=== PATIENT | female | born 1950 | race Caucasian/White ===

== ENCOUNTER → 2016-05-12 | Outpatient (REF) | payer MEDICARE, OTHER | LOC: M LAB REF 13:21 | PROVIDERS: ATTEND Internal Medicine | DX: Z01.89 Encounter for other specified special examinations (principal) ==

== ENCOUNTER → 2019-04-30 | Outpatient (REF) | payer MEDICARE, OTHER ==
[2019-04-30 18:15] LABS: BLOOD UREA NITROGEN 19 MG/DL (7-18); CREATININE FOR GFR 0.84 MG/DL (0.55-1.30); GLOMERULAR FILTRATION RATE > 60.0 (>39)
== END ==
LOC: M LABNEURO 17:00
PROVIDERS: ATTEND Surgery Vascular Surgery
DX: I65.21 Occlusion and stenosis of right carotid artery (principal)

== ENCOUNTER 2019-07-20 13:41 | Emergency (ER) | payer MEDICARE, OTHER ==
[~2019-07-20] VITALS: Ht 160 cm; Wt 80.7 kg
[2019-07-20] MEDS ORDERED: CLOP75TA2 (14:06)
[2019-07-20] MEDS ORDERED: CLON-412 (14:06)
[2019-07-20] MEDS ORDERED: ROSU20TA5 (14:06)
[2019-07-20] MEDS ORDERED: LISI40TA (14:06)
[2019-07-20] MEDS ORDERED: ASPI81CH33 PO (14:07)
[2019-07-20] MEDS ORDERED: CALC600C3 PO (14:08)
[2019-07-20] MEDS ORDERED: VITAD1000T PO (14:09)
[2019-07-20] MEDS ORDERED: OMEG12004 PO (14:10)
[2019-07-20] MEDS ORDERED: VITA500C24 PO (14:10)
[2019-07-20 14:14] VITALS: BP 198/68
[2019-07-20] MEDS ORDERED: NIFEdipine 10 MG CAP PO ONE (14:15)
[2019-07-20 14:25] LABS: BASO % 0.6 % (0.0-1.0); EOS % 0.6 % (0.0-3.0); HEMATOCRIT 40.1 % (36.0-47.0); LYMPH # 1.8 10^3/uL (1.5-5.0); MEAN CORPUSCULAR HEMOGLOBIN 30.7 pg (27.0-33.0); MEAN CORPUSCULAR HGB CONC 32.4 g/dl (32.0-36.5); MEAN CORPUSCULAR VOLUME 94.8 fl (80.0-96.0); MONO # 0.5 10^3/uL (0.0-0.8); MONO % 6.9 % (0.0-5.0); NEUTROPHILS # 4.6 10^3/uL (1.5-8.5); NEUTROPHILS % 65.3 % (36.0-66.0); PLATELET COUNT, AUTOMATED 215 10^3/uL (150-450); RED BLOOD COUNT 4.23 10^6/uL (4.00-5.40); WHITE BLOOD COUNT 7.1 10^3/uL (4.0-10.0)
[2019-07-20 15:00] VITALS: BP 166/75
[2019-07-20 15:00] LABS: ALBUMIN 3.6 GM/DL (3.2-5.2); ALT/SGPT 15 U/L (12-78); BILIRUBIN,DIRECT 0.1 MG/DL (0.0-0.2); BILIRUBIN,TOTAL 0.3 MG/DL (0.2-1.0); BLOOD UREA NITROGEN 15 MG/DL (7-18); CALCIUM LEVEL 9.1 MG/DL (8.8-10.2); CARBON DIOXIDE LEVEL 27 MEQ/L (21-32); CHLORIDE LEVEL 107 MEQ/L (98-107); CK-MB VALUE MASS < 1.0 NG/ML (<3.6); CPK CREATINE PHOSPHOKINASE 70 U/L (26-192); CREATININE FOR GFR 0.77 MG/DL (0.55-1.30); GLOMERULAR FILTRATION RATE > 60.0 (>39); GLUCOSE, FASTING 94 MG/DL (70-100); MB/CK RELATIVE INDEX 1.43 (< OR =4); POTASSIUM SERUM 3.7 MEQ/L (3.5-5.1); SODIUM LEVEL 143 MEQ/L (136-145); TOTAL PROTEIN 7.3 GM/DL (6.4-8.2); TROPONIN I < 0.02 NG/ML (< 0.10)
--- NOTE | 2019-07-20 16:16 | ECGEPIP ---
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
== END 2019-07-20 15:37 | disposition home or self-care (01) ==
LOC: M ED 13:41
DX: I11.0 Hypertensive heart disease with heart failure (principal); F41.9 Anxiety disorder, unspecified; R94.31 Abnormal electrocardiogram [ECG] [EKG]; Z88.0 Allergy status to penicillin; Z79.82 Long term (current) use of aspirin; Z79.899 Other long term (current) drug therapy

== ENCOUNTER → 2022-12-12 | Outpatient (CLI) | payer MEDICARE, OTHER ==
[~2022-12-12] MED LIST: ASPI81CH33 PO; CALC600C3 PO; CLON-412; CLOP75TA2; LISI40TA4; OMEG12004 PO; ROSU20TA61; VITA100093 PO; VITA500C24 PO
== END ==
LOC: M WUC 13:14
PROVIDERS: ATTEND Nurse Practitioner Family
DX: M25.561 Pain in right knee (principal); M79.604 Pain in right leg

== ENCOUNTER → 2023-01-08 | Outpatient (CLI) | payer MEDICARE, OTHER | LOC: M RAD 10:05 | PROVIDERS: ATTEND Surgery Vascular Surgery | DX: I65.23 Occlusion and stenosis of bilateral carotid arteries (principal) ==

== ENCOUNTER → 2023-04-09 | Outpatient (CLI) | payer MEDICARE, OTHER | LOC: M WUC 14:56 | PROVIDERS: ATTEND Nurse Practitioner Family | DX: M54.2 Cervicalgia (principal); Z97.8 Presence of other specified devices ==

== ENCOUNTER → 2023-04-26 | Outpatient (REF) | payer MEDICARE, OTHER ==
[2023-04-26 13:17] LABS: RHEUMATOID FACTOR QUANT < 3.5 IU/ML (<14)
== END ==
LOC: M LAB REF 11:34
PROVIDERS: ATTEND Internal Medicine
DX: M54.2 Cervicalgia (principal)

== ENCOUNTER → 2023-05-08 | Outpatient (REF) | payer MEDICARE, OTHER ==
[2023-05-08 15:22] LABS: C REACTIVE PROTEIN QUANTITATIV 7.7 MG/DL (<1.0)
[2023-05-08 15:23] LABS: PERCENT SATURATION 11.6 % (13.2-45.0)
[2023-05-08 15:26] LABS: FOLATE 6.1 NG/ML (>5.4)
== END ==
LOC: M LAB REF 12:09
PROVIDERS: ATTEND Internal Medicine
DX: M35.3 Polymyalgia rheumatica (principal); D64.9 Anemia, unspecified

== ENCOUNTER → 2023-05-17 | Outpatient (REF) | payer MEDICARE, OTHER | LOC: M LAB REF 16:19 | PROVIDERS: ATTEND Internal Medicine | DX: M35.3 Polymyalgia rheumatica (principal) ==

== ENCOUNTER → 2023-05-30 | Outpatient (CLI) | payer MEDICARE, OTHER | LOC: M RAD 15:47 | PROVIDERS: ATTEND Internal Medicine | DX: R51.9 Headache, unspecified (principal) ==

== ENCOUNTER → 2023-06-05 | Outpatient (REF) | payer MEDICARE, OTHER ==
[2023-06-05 14:26] LABS: VITAMIN B12 LEVEL 442 PG/ML (211-911)
[2023-06-05 14:29] LABS: C REACTIVE PROTEIN QUANTITATIV < 0.40 MG/DL (<1.0)
== END ==
LOC: M LAB REF 13:00
PROVIDERS: ATTEND Internal Medicine
DX: M35.3 Polymyalgia rheumatica (principal); D64.9 Anemia, unspecified

== ENCOUNTER → 2023-07-04 | Outpatient (REF) | payer MEDICARE, OTHER | LOC: M LAB REF 13:33 | PROVIDERS: ATTEND Internal Medicine | DX: M35.3 Polymyalgia rheumatica (principal) ==

== ENCOUNTER → 2023-07-16 | Outpatient (REF) | payer MEDICARE, OTHER | LOC: M LAB REF 11:31 | PROVIDERS: ATTEND Internal Medicine | DX: M35.3 Polymyalgia rheumatica (principal) ==

== ENCOUNTER → 2023-07-17 | Outpatient (CLI) | payer MEDICARE, OTHER | LOC: M RAD 12:48 | PROVIDERS: ATTEND Surgery Vascular Surgery | DX: I65.23 Occlusion and stenosis of bilateral carotid arteries (principal) ==

== ENCOUNTER → 2023-08-01 | Outpatient (REF) | payer MEDICARE, OTHER | LOC: M LAB REF 12:01 | PROVIDERS: ATTEND Internal Medicine | DX: M35.3 Polymyalgia rheumatica (principal) ==

== ENCOUNTER → 2023-08-15 | Outpatient (REF) | payer MEDICARE, OTHER | LOC: M LAB REF 13:04 | PROVIDERS: ATTEND Internal Medicine | DX: M35.3 Polymyalgia rheumatica (principal) ==

== ENCOUNTER → 2023-08-29 | Outpatient (REF) | payer MEDICARE, OTHER | LOC: M LAB REF 13:16 | PROVIDERS: ATTEND Internal Medicine | DX: M35.3 Polymyalgia rheumatica (principal) ==

== ENCOUNTER → 2023-09-19 | Outpatient (REF) | payer MEDICARE, OTHER | LOC: M LAB REF 13:04 | PROVIDERS: ATTEND Internal Medicine | DX: M35.3 Polymyalgia rheumatica (principal) ==

== ENCOUNTER → 2023-10-02 | Outpatient (REF) | payer MEDICARE, OTHER | LOC: M LAB REF 15:26 | PROVIDERS: ATTEND Internal Medicine | DX: M35.3 Polymyalgia rheumatica (principal) ==

== ENCOUNTER → 2023-10-17 | Outpatient (REF) | payer MEDICARE, OTHER | LOC: M LAB REF 11:26 | PROVIDERS: ATTEND Internal Medicine | DX: M35.3 Polymyalgia rheumatica (principal) ==

== ENCOUNTER → 2023-10-30 | Outpatient (REF) | payer MEDICARE, OTHER | LOC: M LAB REF 16:28 | PROVIDERS: ATTEND Internal Medicine | DX: M35.3 Polymyalgia rheumatica (principal) ==

== ENCOUNTER → 2023-11-13 | Outpatient (REF) | payer MEDICARE, OTHER | LOC: M LAB REF 12:59 | PROVIDERS: ATTEND Internal Medicine | DX: M35.3 Polymyalgia rheumatica (principal) ==

== ENCOUNTER → 2023-11-27 | Outpatient (REF) | payer MEDICARE, OTHER | LOC: M LAB REF 16:40 | PROVIDERS: ATTEND Internal Medicine | DX: M35.3 Polymyalgia rheumatica (principal) ==

== ENCOUNTER → 2023-12-12 | Outpatient (REF) | payer MEDICARE, OTHER | LOC: M LAB REF 16:28 | PROVIDERS: ATTEND Internal Medicine | DX: M35.3 Polymyalgia rheumatica (principal) ==

== ENCOUNTER → 2023-12-17 | Outpatient (REF) | payer MEDICARE, OTHER | LOC: M LAB REF 11:40 | PROVIDERS: ATTEND Internal Medicine | DX: M35.3 Polymyalgia rheumatica (principal) ==

== ENCOUNTER → 2023-12-31 | Outpatient (REF) | payer MEDICARE, OTHER | LOC: M LAB REF 16:28 | PROVIDERS: ATTEND Internal Medicine | DX: M35.3 Polymyalgia rheumatica (principal) ==

== ENCOUNTER → 2024-01-15 | Outpatient (REF) | payer MEDICARE, OTHER | LOC: M LAB REF 17:00 | PROVIDERS: ATTEND Internal Medicine | DX: M35.3 Polymyalgia rheumatica (principal) ==

== ENCOUNTER → 2024-01-25 | Outpatient (REF) | payer MEDICARE, OTHER ==
[~2024-01-25] MED LIST changes: -ROSU20TA61; +ROSU20TA86
== END ==
LOC: M LAB REF 12:31
PROVIDERS: ATTEND Internal Medicine
DX: M35.3 Polymyalgia rheumatica (principal)

== ENCOUNTER → 2024-02-28 | Outpatient (REF) | payer MEDICARE, OTHER | LOC: M LAB REF 13:15 | PROVIDERS: ATTEND Internal Medicine | DX: M35.3 Polymyalgia rheumatica (principal) ==

== ENCOUNTER → 2024-04-09 | Outpatient (REF) | payer MEDICARE, OTHER | LOC: M LAB REF 13:27 | PROVIDERS: ATTEND Internal Medicine | DX: M35.3 Polymyalgia rheumatica (principal) ==

== ENCOUNTER → 2024-06-10 | Outpatient (REF) | payer MEDICARE, OTHER ==
[2024-06-11 23:33] LABS: CARDIOLIPIN IGA ANTIBODY < 2.0 APL-U/mL (<20.0); CARDIOLIPIN IGG ANTIBODY < 2.0 GPL-U/mL (<20.0); CARDIOLIPIN IGM ANTIBODY 11.4 MPL-U/mL (<20.0)
[2024-06-12 11:09] LABS: DRVV SCREEN 39.7 SECONDS
[2024-06-12 11:59] LABS: PTT LUPUS TYPE ANTICOAG SCREEN 1.01 (0-1.20)
[2024-06-12 19:18] LABS: HOMOCYST(E)INE SERUM 15.1 umol/L (<10.4)
[2024-06-16 01:13] LABS: ANTI THROMBIN 3 ANTIGEN IMMUNO 106 % normal (80-120); ANTI THROMBIN 3 FUNCT ACTIVITY 110 % normal (80-135)
[2024-06-17 20:07] LABS: FACTOR V LEIDEN FOR MEDINET NEGATIVE
[2024-06-19 01:13] LABS: PROTEIN C FUNCTIONAL ACTIVITY 138 % normal (70-180); PROTEIN S FUNCTIONAL ACTIVITY 80 % normal (60-140)
[2024-06-19 11:36] LABS: MTHFR DNA ANALYSIS POSITIVE
== END ==
LOC: M LAB REF 11:58
PROVIDERS: ATTEND Internal Medicine
DX: M35.3 Polymyalgia rheumatica (principal); I82.4Z2 Acute embolism and thrombosis of unspecified deep veins of left distal lower extremity

== ENCOUNTER → 2024-07-01 | Outpatient (REF) | payer MEDICARE, OTHER | LOC: M LAB REF 12:25 | PROVIDERS: ATTEND Internal Medicine | DX: M35.3 Polymyalgia rheumatica (principal) ==

== ENCOUNTER → 2024-07-16 | Outpatient (CLI) | payer MEDICARE, OTHER | LOC: M RAD 11:42 | PROVIDERS: ATTEND Physician Assistant | DX: I65.23 Occlusion and stenosis of bilateral carotid arteries (principal) ==

== ENCOUNTER → 2024-08-05 | Outpatient (REF) | payer MEDICARE, OTHER | LOC: M LAB REF 14:07 | PROVIDERS: ATTEND Physician Assistant Medical | DX: R22.42 Localized swelling, mass and lump, left lower limb (principal) ==

== ENCOUNTER → 2024-08-15 | Outpatient (REF) | payer MEDICARE, OTHER | LOC: M LAB REF 14:32 | PROVIDERS: ATTEND Internal Medicine | DX: M35.3 Polymyalgia rheumatica (principal) ==

== ENCOUNTER → 2024-08-29 | Outpatient (REF) | payer MEDICARE, OTHER ==
[2024-08-29 14:21] LABS: C REACTIVE PROTEIN QUANTITATIV 1.43 MG/DL (<1.0)
== END ==
LOC: M LAB REF 13:32
PROVIDERS: ATTEND Internal Medicine
DX: M35.3 Polymyalgia rheumatica (principal)

== ENCOUNTER → 2024-09-04 | Outpatient (CLI) | payer MEDICARE, OTHER | LOC: M WUC 12:43 | PROVIDERS: ATTEND Internal Medicine | DX: M54.50 Low back pain, unspecified (principal) ==

== ENCOUNTER → 2024-11-13 | Outpatient (REF) | payer MEDICARE, OTHER ==
[~2024-11-13] MED LIST changes: +LISI40TA10; -LISI40TA4
== END ==
LOC: M LAB REF 12:09
PROVIDERS: ATTEND Internal Medicine
DX: M35.3 Polymyalgia rheumatica (principal)

== ENCOUNTER → 2024-12-12 | Outpatient (REF) | payer MEDICARE, OTHER | LOC: M LAB REF 14:14 | PROVIDERS: ATTEND Internal Medicine | DX: M35.3 Polymyalgia rheumatica (principal) ==

== ENCOUNTER → 2025-02-18 | Outpatient (REF) | payer MEDICARE, OTHER | LOC: M LAB REF 12:37 | DX: M35.3 Polymyalgia rheumatica (principal) ==